=== PATIENT | male | born 1940 | race Caucasian/White ===

== ENCOUNTER → 2018-05-26 15:43 | Outpatient (CLI) | payer MEDICARE, MEDICAID, SELFPAY | PROVIDERS: Visit Provider Urology | DX: R82.99 Other abnormal findings in urine (principal) | CPT/HCPCS: 87086; 87088 ==

== ENCOUNTER 2018-06-19 12:50 | Day surgery (SDC) | payer MEDICARE, MEDICAID, SELFPAY ==
--- NOTE | 2018-06-15 13:03 | RAD_ITS ---
STUDY: X-RAY CHEST REASON FOR EXAM: Male, 78 years old. Pre-op for kidney stone surgery. TECHNIQUE: PA and lateral views of the chest. COMPARISON: February 05, 2018 FINDINGS: There are bibasilar streaky opacities. The lungs remain hyperinflated. There is no focal consolidation. Sternal cerclage wires are present from a prior sternotomy. The cardiac silhouette is stable. Normal mediastinum and danette. Normal visualized pulmonary arteries. Normal visualized aortic arch and descending thoracic aorta. Normal visualized thoracic spine. Normal visualized ribs, clavicles, and shoulders. There is no demonstrated abnormality of the visualized soft tissue structures of the upper abdomen. RAD/Chest PA and Lateral IMPRESSION: Bibasilar streaky opacities likely secondary to underlying atelectasis and/or scarring. Electronically Signed: Sanam Lazo MD at 21:43 EDT Tel , Service support ,
--- NOTE | 2018-06-15 13:14 | EKG12_ITS ---
Test Reason : PREOP Blood Pressure : / mmHG Vent. Rate : 077 BPM Atrial Rate : 077 BPM P-R Int : 136 ms QRS Dur : 138 ms QT Int : 404 ms P-R-T Axes : 001 005 054 degrees QTc Int : 457 ms Normal sinus rhythm Right bundle branch block Abnormal ECG Confirmed by ALEKSANDER LEE, LESA ([id number]), dictionary editor JUAN CARLOS POOLE ([id number] on 06/17/2018 10:33:29 AM Referred By: Nacho Hanna Confirmed By:LESA ARMIJO MD
[2018-06-15 13:59] LABS: Hematocrit 37.8 % (40-54); Hemoglobin 12.1 g/dl (13.0-16.5); Mean Corpuscular Hgb 30.8 pg (27.0-32.0); Mean Corpuscular Volume 96.2 fL (80-94); Platelet Count 236 K/mm3 (150-450); RBC Distribution Width CV 13.8 % (11.6-14.6); RBC Distribution Width SD 47.1 fl (35.1-43.9); Red Blood Count 3.93 M/mm3 (4.6-6.2); White Blood Count 9.1 K/mm3 (4.4-11.0)
[2018-06-15 14:10] LABS: Scan Indicated on CBC? Y/N NO
[2018-06-15 14:34] LABS: Anion Gap 7 (5-15); BUN 23 mg/dL (7-18); BUN/Creat Ratio 14.6 RATIO (10-20); Calcium,Total 8.8 mg/dL (8.5-10.1); Chloride 104 mmol/L (98-107); Creatinine, Serum 1.57 mg/dL (0.70-1.30); EST Glomerular Filtration Rate 46 mL/min (>60); Est Glom Filt Rate - Afr Amer 55 mL/min (>60); Glucose 187 mg/dL (74-106); Potassium 3.8 mmol/L (3.5-5.1); Sodium Level 137 mmol/L (136-145)
[2018-06-19 13:18] VITALS: BP 143/65; PULSE 72; RESP 16; TEMP 36.4; O2SAT 100; BMI 38.9
[2018-06-19 13:35] LABS: Bedside Glucose 107 mg/dL (70-110)
[2018-06-19] MEDS: Cefazolin 2 GM in 0.9% Normal Saline 100 ML IV (14:35)
--- NOTE | 2018-06-19 15:19 | PCM.DC.URO ---
Discharge Diet: Light diet - advance as tolerated Discharge Activity: May not drive while taking narcotic pain medications. Suture Line Care: Avoid Pulling/Pushing, Avoid Pinching/Bending Allergies/Adverse Reactions: Allergies doxycycline Allergy (Verified 06/15/18 11:09) vomiting and abdominal pain Penicillins Allergy (Verified 06/15/18 11:08) Rash hydrocodone Adverse Reaction (Verified 06/15/18 11:08) Vomiting tramadol HCl [From [facility]] Adverse Reaction (Verified 06/15/18 11:08) Vomiting Medications to take at Discharge Acetaminophen [Tylenol] 500 - 1,000 mg PO QHS 01/31/14 Losartan Potassium 1 tab PO DAILY 01/31/14 Metformin [Metformin HCl] 1,500 mg PO DAILY 01/31/14 [place]-3 Fatty Acids/Fish Oil [Fish Oil 1,000 mg Capsule] 1 each PO DAILY 01/31/14 Simvastatin 40 mg PO QHS 01/31/14 Albuterol Inhaler [Ventolin Hfa (SP)] 1 - 2 puff INHALATION Q4H PRN PRN 06/15/18 Cyanocobalamin (Vitamin B-12) [Vitamin B-12] 1,000 mcg PO DAILY 06/15/18 Enoxaparin Sodium [Lovenox] 80 mg SQ Q12H 06/15/18 Fluticasone 0.05% [Flonase Nasal [place]] 1 spray NASAL DAILY PRN 06/15/18 Metformin HCl [Glucophage] 1,000 mg PO QHS 06/15/18 Peg 400/Hypromellose/Glycerin [Artificial Tears Drops] 15 ml OP BID 06/15/18 Primidone [Mysoline] 50 mg PO QHS 06/15/18 Sertraline HCl [Zoloft] 50 mg PO DAILY 06/15/18 Warfarin [Coumadin ([facility])] 3.5 mg PO DAILY 06/15/18 Ciprofloxacin [Cipro] 500 mg PO BID #10 tab 06/19/18 Oxycodone HCl/Acetaminophen [Percocet 5/325] 1 tab PO Q6H PRN PRN 5 Days #10 tab 06/19/18 The following prescriptions were given: Oxycodone HCl/Acetaminophen [Percocet 5/325] 1 tab PO Q6H PRN PRN 5 Days #10 tab PRN Reason: Pain Ciprofloxacin [Cipro] 500 mg PO BID #10 tab Primary Care Physician: Brendon Pitts [Primary Care Provider] - Test Results: Test results from this visit will be discussed in further detail at your follow-up appointment, if applicable. Please Follow Up With: Nacho Hanna MD When: please call to make an appointment.
--- NOTE | 2018-06-19 15:20 | PCM.OPRPT ---
Report of Operation Date of Procedure: 06/19/18 Pre-Operative Diagnosis: Right ureteral calculi causing obstruction and hydronephrosis Post-Operative Diagnosis: Same Surgery/Procedure Performed:: Cystoscopy, right retrograde pyelogram, right ureteroscopy laser of stone in the distal ureter causing hydronephrosis and obstruction, balloon dilation of the ureter, and right stent placement Description of Surgical Findings:: 78-year-old male was having gross hematuria and CT scan was done and demonstrated a stone in the distal ureter causing obstruction and hydronephrosis of the left kidney recommended we treat the stone and alleviate the obstruction he also has some other nonobstructing stones in the right kidney we may not treat these today. 78-year-old male taken back to the operating room after smooth induction of general anesthesia he was placed supine on the table and then in dorsal lithotomy position he was given SCDs for DVT prophylaxis, antibiotics for antibiotic prophylaxis, is legs were placed in dorsal lithotomy position and the penis testicles were prepped and draped in Betadine soap and sterile fashion. Patient was draped, we then went into the bladder with a 21 [place] rigid cystourethroscope the entire length of the urethra was normal sphincter was normal intact he had a prior TURP and wide open channel inside the bladder fairly trabeculated bladder I then identified the right ureteral orifice use a Pollack catheter and a Glidewire and immediately could see the Glidewire hit the catheter the wire hit the stone could not go beyond the stone of the ureter after some mild manipulation and was able to get the stone up the ureter and secured axis then over the wire I balloon dilated the distal ureter to open it up and then left the wire in place next to the wire I went in with a SlimLine rigid ureteroscope was able to get into the ureter quite easily and then it eventually ran into a stone that was impacted in the distal ureter stone was then treated with laser lithotripsy using a 270 ?m laser fiber as the stone was completely lasered and little tiny pieces I worked up the ureter ureter is fairly tortuous could not go beyond the pelvis so that I performed a retrograde pyelogram there were no other stones along the course of the ureter and no other visible stones up in the kidney. Possible these radiolucent stones. I then advanced a wire up into the kidney over the wire performed a retrograde Polygram to see the hydronephrotic kidney and then over the Pollack catheter I then placed a stent 6 [place] by 28 cm stent at the string of the stent for extraction in the near future. Patient's bladder was emptied he is transferred back to the PACU in good condition will see him next week with an x-ray to get the stent out. Type of Anesthesia:: General Drains: stent right side. - Admit VTE Documentation VTE Present on Admission: No VTE Mechan Device Prophylaxis: SCD's
[2018-06-19 15:27] VITALS: BP 143/65; BP 151/85; PULSE 79; RESP 16; TEMP 36.3; O2SAT 92
[2018-06-19 15:30] VITALS: BP 143/65; BP 156/88; PULSE 80; RESP 16; O2SAT 92
[2018-06-19 15:49] VITALS: BP 143/65; BP 153/76; PULSE 71; RESP 16; TEMP 36.2; O2SAT 94
[2018-06-19 16:12] VITALS: BP 143/65
== END 2018-06-19 16:28 | disposition home or self-care (01) ==
LOC: SDC 12:52 → AC 12:52
PROVIDERS: Family Provider Internal Medicine; PCP Internal Medicine; Visit Provider Urology
PROC: 0TJ98ZZ Inspection of Ureter, Via Natural or Artificial Opening Endoscopic (ICD-10-PCS; CPT 52352; principal; 2018-06-19 14:10)
DX: N40.1 Benign prostatic hyperplasia with lower urinary tract symptoms (principal); N13.2 Hydronephrosis with renal and ureteral calculous obstruction; R31.0 Gross hematuria; N21.0 Calculus in bladder; E78.2 Mixed hyperlipidemia; I25.10 Atherosclerotic heart disease of native coronary artery without angina pectoris; I10 Essential (primary) hypertension; E11.9 Type 2 diabetes mellitus without complications; J45.909 Unspecified asthma, uncomplicated; E66.9 Obesity, unspecified; Z68.38 Body mass index [BMI] 38.0-38.9, adult; Z87.891 Personal history of nicotine dependence; Z87.442 Personal history of urinary calculi; Z79.01 Long term (current) use of anticoagulants; Z86.718 Personal history of other venous thrombosis and embolism
CPT/HCPCS: 52356; 36415; 71046; 76000; 80048; 82962; 85027; 93005; J7120; C1769

== ENCOUNTER → 2018-06-25 14:17 | Outpatient (CLI) | payer MEDICARE, MEDICAID, SELFPAY | PROVIDERS: Family Provider Internal Medicine; PCP Internal Medicine; Visit Provider Urology | DX: N20.0 Calculus of kidney (principal) | CPT/HCPCS: 74018 ==

== ENCOUNTER → 2021-05-10 13:02 | Outpatient (CLI) | payer MEDICARE, MEDICAID, SELFPAY ==
--- NOTE | 2021-05-10 13:11 | CT_ITS ---
STUDY: CT ABDOMEN AND PELVIS WITHOUT CONTRAST REASON FOR EXAM: Male, 81 years old. GROSS HEMATURIA,CALCULUS OF KIDNEY RADIATION DOSAGE (If Supplied By Facility): CTDIvol = ( 21.14 ) mGy, DLP = ( 1067.03 ) mGycm TECHNIQUE: Transaxial images were obtained from the dome of the diaphragm to the symphysis pubis without oral contrast, and without intravenous contrast. Sagittal and coronal images were reconstructed. Individualized dose optimization techniques were used for this CT. COMPARISON: Comparison is made with prior examination dated 01/22/2014. FINDINGS: The visualized lung bases are unremarkable. Coronary artery calcification. Normal liver. The patient is status post cholecystectomy. Normal spleen. Normal pancreas. Normal bilateral adrenal glands. There is a 1.1 cm calculus in the lower pole calyx of the right kidney. There is also evidence of a 1.4 mm calculus in the midpole calyx of the right kidney. Normal left kidney. Normal visualized stomach. Normal small intestine. Large amount of fecal material is seen in the colon. There is non-visualization of the appendix. There is diffuse atherosclerotic calcification of the abdominal aorta and its major visceral branches, without a demonstrated aneurysm. There is an IVC filter in place. Normal retroperitoneum. Normal urinary bladder. Normal abdominal wall. There are diffuse degenerative changes of the visualized lumbar spine. CT/Abdomen/Pelvis without Cont IMPRESSION: Nonobstructive right intrarenal calculi. The previously seen bladder calculi are not seen at this time. Electronically Signed: Benton Arenas MD at 14:39 EDT , Service support ,
== END ==
PROVIDERS: PCP Internal Medicine; Visit Provider Nurse Practitioner Adult Health
DX: R31.0 Gross hematuria (principal); N20.0 Calculus of kidney
CPT/HCPCS: 74176